=== PATIENT | male | born 1955 | race African-American/Black ===

== ENCOUNTER 2019-12-29 04:35 | Emergency (ER) | payer MEDICAID ==
[~2019-12-29] VITALS: Ht 175.3 cm; Wt 79.5 kg
[2019-12-29 04:52] VITALS: BP 156/101
[2019-12-29] MEDS ORDERED: TOLN108P2 TOP (04:57)
== END 2019-12-29 05:19 | disposition home or self-care (01) ==
LOC: ER 04:36
DX: B35.1 Tinea unguium (principal); Z59.0 Homelessness; Z88.8 Allergy status to other drugs, medicaments and biological substances; Z88.5 Allergy status to narcotic agent
CPT/HCPCS: 99283